=== PATIENT | female | born 1985 | race Caucasian/White ===

== ENCOUNTER 2020-07-01 14:49 | Outpatient (CLI) | payer OTHER | END 2020-07-01 14:50 | disposition home or self-care (01) | LOC: BICRAD 14:49 | PROVIDERS: ATTEND Orthopaedic Surgery | DX: M13.80 Other specified arthritis, unspecified site (principal) | CPT/HCPCS: 72070; 72100 ==

== ENCOUNTER 2020-09-13 10:09 | Outpatient (CLI) | payer OTHER | END 2020-09-13 10:10 | disposition home or self-care (01) | LOC: BICRAD 10:09 | PROVIDERS: ATTEND Orthopaedic Surgery | DX: M47.812 Spondylosis without myelopathy or radiculopathy, cervical region (principal) | CPT/HCPCS: 72040 ==